=== PATIENT | female | born 1945 | race African-American/Black ===

== ENCOUNTER 2018-04-22 08:59 | Inpatient (IN) ==
[2018-04-22] MEDS ORDERED: SODIUM CHLORIDE 0.9% 500 ML IV STA (09:53)
[2018-04-22 11:06] LABS: Basophils # 0.1 10*3/uL (0.0-0.2); Basophils % 0.6 % (0.0-0.8); Eosinophils % 0.2 % (0.00-10.9); Hematocrit 42.2 VOL% (35.7-47.0); Hemoglobin 13.6 GM/DL (12.0-16.0); Immature Granulocytes % 0.3 %; Immature Granulocytes Absolute 0.04 #; Lymphocytes % 24.4 % (21.3-54.2); Mean Corpuscular HGB Conc 32.2 GM/DL (32-36); Mean Corpuscular Hemoglobin 27 PG (27-34); Mean Corpuscular Volume 84.2 FL (87-102); Mean Platelet Volume 9.8 FL (9.6-12.0); Monocytes # 1.6 10*3/uL (0.11-0.8); Neutrophils # 7.6 10*3/uL (1.4-7.4); Neutrophils % 61.5 % (38.7-73.9); Platelet Count 438 T/CUMM (130-400); Red Blood Count 5.01 MC/CUMM (3.8-5.5); Red Cell Distribution Width 15.4 % (9.3-17.3); White Blood Count 12.4 T/CUMM (4-12)
[2018-04-22 11:15] LABS: Apearance,Urine Slightly Hazy (Clear); Bacteria,Urine Occasional /HPF (Few); Bilirubin,Urine Negative (Negative); Blood, Urine Negative (Negative); Glucose,Urine (UA) Negative (Negative); Ketones,Urine Negative (Negative); Nitrite,Urine Negative (Negative); Protein,Urine Negative; RBC,Urine 1 /HPF (0-4); Squamous Epithelial Cell,Urine Occasional /HPF (0-10); Urine Color Yellow (Yellow); Urine Specific Gravity 1.008 (1.001-1.035); WBC,Urine 53 /HPF (0-6)
[2018-04-22 11:16] LABS: Albumin 2.7 G/DL (3.4-5.0); Bilirubin,Total 1.3 MG/DL (0.2-1.0); Calcium 9.6 MG/DL (8.5-10.1); Osmolality,Calculated 259.7 MOS/KG (273-304); Potassium 4.3 MMOL/L (3.5-5.1); Thyroid Stimulating Hormone 1.36 uIU/ml (0.358-3.74); Total Protein 7.6 G/DL (6.4-8.3)
[2018-04-22] MEDS ORDERED: ACETAMINOPHEN 325 MG TABLET PO PRN (11:41)
[2018-04-22] MEDS ORDERED: PROMETHAZINE 25 MG/1 ML VIAL IM PRN (11:41)
[2018-04-22] MEDS ORDERED: ONDANSETRON 4 MG/2 ML VIAL IV PRN (11:41)
[2018-04-22] MEDS ORDERED: SODIUM CHLORIDE 0.9% 1,000 ML IV SCH (12:00)
[2018-04-22] MEDS ORDERED: ENOXAPARIN 40 MG/0.4 ML SYRINGE SUBCUT SCH (12:00)
[2018-04-22] MEDS: ASPIRIN 325 MG TABLET PO SCH (12:13)
[2018-04-22] MEDS: cefTRIAXone 1,000 MG in SYRINGE 1 EACH IV SCH (12:15)
[2018-04-22] MEDS ORDERED: cefTRIAXone 1,000 MG VIAL ONE (12:15)
[2018-04-22] MEDS: ENOXAPARIN 60 MG/0.6 ML SYRINGE SUBCUT SCH ×2 (12:16→23:00)
[2018-04-22 17:46] LABS: CKMB % 2.8 %
[2018-04-22 17:52] LABS: Troponin I 4.63 NG/ML (0.00-0.045)
[2018-04-22] MEDS: ROSUVASTATIN 20 MG TABLET PO SCH (22:46)
[2018-04-22 22:49] LABS: CKMB % 2.5 %
[2018-04-22 22:55] LABS: Troponin I 5.05 NG/ML (0.00-0.045)
[2018-04-23 04:13] LABS: Basophils # 0.1 10*3/uL (0.0-0.2); Basophils % 0.6 % (0.0-0.8); Eosinophils # 0.1 10*3/uL (0.0-0.87); Eosinophils % 0.6 % (0.00-10.9); Hematocrit 33.1 VOL% (35.7-47.0); Hemoglobin 10.3 GM/DL (12.0-16.0); Immature Granulocytes % 0.4 %; Immature Granulocytes Absolute 0.05 #; Lymphocytes % 32.2 % (21.3-54.2); Mean Corpuscular HGB Conc 31.1 GM/DL (32-36); Mean Corpuscular Hemoglobin 26 PG (27-34); Mean Corpuscular Volume 84.2 FL (87-102); Mean Platelet Volume 10.5 FL (9.6-12.0); Monocytes # 1.7 10*3/uL (0.11-0.8); Monocytes % 13.7 % (1.7-12.7); Neutrophils # 6.5 10*3/uL (1.4-7.4); Neutrophils % 52.5 % (38.7-73.9); Platelet Count 419 T/CUMM (130-400); Red Blood Count 3.93 MC/CUMM (3.8-5.5); Red Cell Distribution Width 15.2 % (9.3-17.3); White Blood Count 12.4 T/CUMM (4-12)
[2018-04-23 04:44] LABS: Bilirubin,Total 0.8 MG/DL (0.2-1.0); Calcium 8.1 MG/DL (8.5-10.1); Osmolality,Calculated 259.7 MOS/KG (273-304); Potassium 3.7 MMOL/L (3.5-5.1); Risk Ratio 3.32; Total Protein 6.3 G/DL (6.4-8.3); VLDL CHOLESTEROL 12.8 MG/DL
[2018-04-23] MEDS ORDERED: MAGNESIUM SULF RIDER 2 GM in PREMIX 1 EACH IV ONE (07:08)
[2018-04-23] MEDS: PANTOPRAZOLE 40 MG TABLET PO SCH (08:24)
[2018-04-23] MEDS: ASPIRIN 325 MG TABLET PO SCH (08:24)
[2018-04-23] MEDS ORDERED: HYOSCYAMINE 0.125 MG TABLET PO PRN (10:21)
[2018-04-23] MEDS: cefTRIAXone 1,000 MG in SYRINGE 1 EACH IV SCH (13:00)
[2018-04-23] MEDS: ENOXAPARIN 60 MG/0.6 ML SYRINGE SUBCUT SCH (13:00)
[2018-04-23] MEDS: RIVAROXABAN 20 MG TABLET PO SCH (17:31)
[2018-04-23] MEDS: ROSUVASTATIN 20 MG TABLET PO SCH (21:09)
[2018-04-24 04:36] LABS: Basophils # 0.1 10*3/uL (0.0-0.2); Basophils % 1.2 % (0.0-0.8); Eosinophils # 0.1 10*3/uL (0.0-0.87); Eosinophils % 1.4 % (0.00-10.9); Hematocrit 32.1 VOL% (35.7-47.0); Hemoglobin 10.3 GM/DL (12.0-16.0); Immature Granulocytes % 0.3 %; Immature Granulocytes Absolute 0.03 #; Lymphocytes % 41.9 % (21.3-54.2); Mean Corpuscular HGB Conc 32.1 GM/DL (32-36); Mean Corpuscular Hemoglobin 27 PG (27-34); Mean Corpuscular Volume 84.9 FL (87-102); Mean Platelet Volume 10.1 FL (9.6-12.0); Monocytes # 1.2 10*3/uL (0.11-0.8); Monocytes % 12.9 % (1.7-12.7); Neutrophils % 42.3 % (38.7-73.9); Platelet Count 446 T/CUMM (130-400); Red Blood Count 3.78 MC/CUMM (3.8-5.5); Red Cell Distribution Width 15.2 % (9.3-17.3); White Blood Count 9.4 T/CUMM (4-12)
[2018-04-24 04:38] LABS: Calcium 8.4 MG/DL (8.5-10.1); Osmolality,Calculated 263.4 MOS/KG (273-304); Potassium 3.9 MMOL/L (3.5-5.1)
[2018-04-24] MEDS: PANTOPRAZOLE 40 MG TABLET PO SCH (08:44)
[2018-04-24] MEDS: ASPIRIN 325 MG TABLET PO SCH (08:44)
[2018-04-24] MEDS: cefTRIAXone 1,000 MG in SYRINGE 1 EACH IV SCH (11:49)
[2018-04-24] MEDS: RIVAROXABAN 20 MG TABLET PO SCH (17:23)
[2018-04-24] MEDS: ROSUVASTATIN 20 MG TABLET PO SCH (21:19)
[2018-04-25 04:30] LABS: Basophils # 0.1 10*3/uL (0.0-0.2); Basophils % 0.9 % (0.0-0.8); Eosinophils # 0.2 10*3/uL (0.0-0.87); Eosinophils % 1.9 % (0.00-10.9); Hematocrit 33.2 VOL% (35.7-47.0); Hemoglobin 10.4 GM/DL (12.0-16.0); Immature Granulocytes % 0.2 %; Immature Granulocytes Absolute 0.02 #; Lymphocytes # 3.7 10*3/uL (1.4-4.0); Lymphocytes % 42.9 % (21.3-54.2); Mean Corpuscular HGB Conc 31.3 GM/DL (32-36); Mean Corpuscular Hemoglobin 26 PG (27-34); Mean Corpuscular Volume 83.8 FL (87-102); Mean Platelet Volume 9.6 FL (9.6-12.0); Monocytes # 0.9 10*3/uL (0.11-0.8); Monocytes % 10.4 % (1.7-12.7); Neutrophils # 3.8 10*3/uL (1.4-7.4); Neutrophils % 43.7 % (38.7-73.9); Platelet Count 476 T/CUMM (130-400); Red Blood Count 3.96 MC/CUMM (3.8-5.5); White Blood Count 8.7 T/CUMM (4-12)
[2018-04-25 04:51] LABS: Calcium 8.7 MG/DL (8.5-10.1); Osmolality,Calculated 267.1 MOS/KG (273-304); Potassium 4.5 MMOL/L (3.5-5.1)
[2018-04-25] MEDS: PANTOPRAZOLE 40 MG TABLET PO SCH (09:09)
[2018-04-25] MEDS: ASPIRIN 325 MG TABLET PO SCH (09:09)
[2018-04-25] MEDS: cefTRIAXone 1,000 MG in SYRINGE 1 EACH IV SCH (11:01)
[2018-04-25] MEDS ORDERED: diphenhydrAMINE CAP 25 MG CAPSULE PO ONE (14:09)
[2018-04-25] MEDS ORDERED: MAGNESIUM SULF RIDER 2 GM in PREMIX 1 EACH IV PRN (14:09)
[2018-04-25] MEDS ORDERED: DIAZEPAM 5 MG TABLET PO ONE (14:09)
[2018-04-25] MEDS ORDERED: POTASSIUM CHLORIDE RIDER 10 MEQ in PREMIX 1 EACH IV PRN (14:09)
[2018-04-25] MEDS ORDERED: LEVOFLOXACIN INJ 500 MG in PREMIX 1 EACH IV SCH (15:00)
[2018-04-25] MEDS: ROSUVASTATIN 20 MG TABLET PO SCH (20:51)
[2018-04-26 04:00] LABS: Basophils # 0.1 10*3/uL (0.0-0.2); Basophils % 0.7 % (0.0-0.8); Eosinophils # 0.2 10*3/uL (0.0-0.87); Eosinophils % 1.6 % (0.00-10.9); Hematocrit 32.8 VOL% (35.7-47.0); Hemoglobin 10.5 GM/DL (12.0-16.0); Immature Granulocytes % 0.4 %; Immature Granulocytes Absolute 0.04 #; Lymphocytes # 3.7 10*3/uL (1.4-4.0); Lymphocytes % 39.1 % (21.3-54.2); Mean Corpuscular Hemoglobin 27 PG (27-34); Mean Corpuscular Volume 84.3 FL (87-102); Mean Platelet Volume 9.8 FL (9.6-12.0); Monocytes % 10.1 % (1.7-12.7); Neutrophils # 4.6 10*3/uL (1.4-7.4); Neutrophils % 48.1 % (38.7-73.9); Platelet Count 496 T/CUMM (130-400); Red Blood Count 3.89 MC/CUMM (3.8-5.5); Red Cell Distribution Width 14.9 % (9.3-17.3); White Blood Count 9.5 T/CUMM (4-12)
[2018-04-26 04:07] LABS: PT Patient Result 10.7 SECS
[2018-04-26 04:20] LABS: Calcium 8.9 MG/DL (8.5-10.1); Osmolality,Calculated 262.5 MOS/KG (273-304); Potassium 4.3 MMOL/L (3.5-5.1)
[2018-04-26] MEDS ORDERED: DIAZEPAM 5 MG TABLET PO ONE (08:00)
[2018-04-26] MEDS ORDERED: diphenhydrAMINE CAP 25 MG CAPSULE PO ONE (08:00)
[2018-04-26 08:08] VITALS: BP 108/57
[2018-04-26] MEDS: ASPIRIN 325 MG TABLET PO SCH (10:13)
[2018-04-26] MEDS: PANTOPRAZOLE 40 MG TABLET PO SCH (10:13)
== END 2018-04-26 13:40 | DRG 64 ==
LOC: N.ED 08:59 → N.EDINP 11:52 → SUATTDRO 11:52 → N.TELES 12:04
PROVIDERS: ADMIT Internal Medicine Geriatric Medicine; ATTEND Internal Medicine

== ENCOUNTER 2018-05-01 05:49 | Inpatient (IN) ==
[2018-05-01] MEDS ORDERED: SODIUM CHLORIDE 0.9% 1,000 ML IV STA ×2 (06:14→08:13)
[2018-05-01 06:55] LABS: Basophils # 0.1 10*3/uL (0.0-0.2); Basophils % 0.4 % (0.0-0.8); Eosinophils % 0.1 % (0.00-10.9); Hematocrit 20.2 VOL% (35.7-47.0); Immature Granulocytes % 0.8 %; Immature Granulocytes Absolute 0.13 #; Lymphocytes # 2.5 10*3/uL (1.4-4.0); Lymphocytes % 15.2 % (21.3-54.2); Mean Corpuscular HGB Conc 31.7 GM/DL (32-36); Mean Corpuscular Hemoglobin 28 PG (27-34); Mean Corpuscular Volume 86.7 FL (87-102); Mean Platelet Volume 9.4 FL (9.6-12.0); Monocytes # 0.4 10*3/uL (0.11-0.8); Monocytes % 2.2 % (1.7-12.7); Neutrophils # 13.3 10*3/uL (1.4-7.4); Neutrophils % 81.3 % (38.7-73.9); Platelet Count 504 T/CUMM (130-400); Red Blood Count 2.33 MC/CUMM (3.8-5.5); Red Cell Distribution Width 14.9 % (9.3-17.3); White Blood Count 16.3 T/CUMM (4-12)
[2018-05-01 07:02] LABS: INR 1.4; PT Patient Result 14.9 SECS; Partial Thromboplastin Time 30.8 SECS (0-40)
[2018-05-01 07:11] LABS: Hemoglobin 6.4 GM/DL (12.0-16.0)
[2018-05-01] MEDS ORDERED: SODIUM CHLORIDE 0.9% 1,000 ML IV PRN ×5 (07:16→11:55)
[2018-05-01] MEDS ORDERED: HYDROmorphone 2 MG/1 ML VIAL IV STA (07:20)
[2018-05-01] MEDS ORDERED: ONDANSETRON 4 MG/2 ML VIAL IV STA (07:20)
[2018-05-01 07:25] LABS: Alanine Aminotransferase 33 U/L (13-56); Albumin 2.6 G/DL (3.4-5.0); Alkaline Phosphatase 81 U/L (45-117); Aspartate Amino Transferase 29 U/L (0-37); Bilirubin,Total < 0.39 MG/DL (0.2-1.0); Blood Urea Nitrogen 33 MG/DL (7-18); Calcium 9.3 MG/DL (8.5-10.1); Glucose 163 MG/DL (74-106); Osmolality,Calculated 268.9 MOS/KG (273-304); Potassium 5.4 MMOL/L (3.5-5.1); Sodium 129 MMOL/L (136-145); Total Protein 7.2 G/DL (6.4-8.3)
[2018-05-01] MEDS ORDERED: ALBUTEROL 2.5 MG/3 ML NEB RESP TX PRN (07:42)
[2018-05-01] MEDS ORDERED: ONDANSETRON 4 MG/2 ML VIAL IV PRN (07:42)
[2018-05-01] MEDS ORDERED: PROMETHAZINE 25 MG/1 ML VIAL IM PRN (07:42)
[2018-05-01] MEDS ORDERED: ACETAMINOPHEN 325 MG TABLET PO PRN (07:42)
[2018-05-01] MEDS ORDERED: SODIUM CHLORIDE 0.9% 1,000 ML IV SCH (08:00)
[2018-05-01] MEDS ORDERED: ROCURONIUM 100 MG/10 ML VIAL IV ONE (08:13)
[2018-05-01] MEDS ORDERED: ETOMIDATE 20 MG/10 ML VIAL IV ONE (08:13)
[2018-05-01] MEDS ORDERED: CALCIUM CHLORIDE 1,000 MG/10 ML SYRINGE IV STA (08:36)
[2018-05-01] MEDS ORDERED: EPINEPHrine 1 MG/10 ML SYRINGE IV ONE (08:44)
[2018-05-01 08:56] LABS: ABG Base Excess -22.9 MMOL/L (-2.5-2.5); ABG HCO3 6.9 MMOL/L (20-26); ABG Oxygen Saturation 20.6 % (95-100); ABG PCO2 56.3 MM HG (35-48); ABG TCO2 10.2 MMOL/L (23-27)
[2018-05-01 08:58] LABS: ABG PH 6.829 (7.35-7.45); ABG PO2 26.1 MM HG (80-95)
[2018-05-01] MEDS ORDERED: SODIUM BICARBONATE 50 MEQ/50 ML VIAL IV STA ×2 (09:07→09:40)
[2018-05-01] MEDS ORDERED: SODIUM BICARBONATE 10 MEQ/10 ML SYRINGE IV ONE (09:09)
[2018-05-01] MEDS ORDERED: OCTREOTIDE 100 MCG/ML SYRINGE IV ONE (09:12)
[2018-05-01 09:37] LABS: ABG Base Excess -24.3 MMOL/L (-2.5-2.5); ABG HCO3 5.7 MMOL/L (20-26); ABG Oxygen Saturation 98.6 % (95-100); ABG PCO2 25.1 MM HG (35-48); ABG PO2 288.5 MM HG (80-95); ABG TCO2 6.5 MMOL/L (23-27)
[2018-05-01 09:41] LABS: ABG PH 6.977 (7.35-7.45)
[2018-05-01] MEDS ORDERED: SODIUM BICARBONATE 50 MEQ/50 ML SYRINGE IV ONE (09:42)
[2018-05-01] MEDS ORDERED: PROTHROMBIN COMPLEX IV ONE ×3 (10:00→11:55)
[2018-05-01] MEDS ORDERED: OCTREOTIDE 500 MCG in SODIUM CHLORIDE 0.9% 100 ML IV SCH (10:00)
[2018-05-01 10:56] LABS: Basophils # 0.1 10*3/uL (0.0-0.2); Basophils % 0.5 % (0.0-0.8); Eosinophils % 0.1 % (0.00-10.9); Hematocrit 42.2 VOL% (35.7-47.0); Hemoglobin 12.8 GM/DL (12.0-16.0); Immature Granulocytes % 2.9 %; Immature Granulocytes Absolute 0.75 #; Lymphocytes % 7.6 % (21.3-54.2); Mean Corpuscular HGB Conc 30.3 GM/DL (32-36); Mean Corpuscular Hemoglobin 28 PG (27-34); Mean Corpuscular Volume 92.3 FL (87-102); Mean Platelet Volume 9.5 FL (9.6-12.0); Monocytes # 0.5 10*3/uL (0.11-0.8); Monocytes % 1.9 % (1.7-12.7); Neutrophils # 22.4 10*3/uL (1.4-7.4); Platelet Count 265 T/CUMM (130-400); Red Blood Count 4.57 MC/CUMM (3.8-5.5); Red Cell Distribution Width 15.8 % (9.3-17.3); White Blood Count 25.7 T/CUMM (4-12)
[2018-05-01 11:19] LABS: Anisocytosis Slight; Band Neutrophils 16 % (0-10); Lymphocytes 7 % (20-55); Macrocytosis 1+; Platelet Estimate Normal; Poikilocytosis Slight; Segmented Neutrophils 77 % (50-85); Smudge Cells Few; Total Cells Counted 100
[2018-05-01 11:20] LABS: Calcium 9.1 MG/DL (8.5-10.1); Osmolality,Calculated 295.4 MOS/KG (273-304); Potassium 5.1 MMOL/L (3.5-5.1); Spherocytes Few
[2018-05-01] MEDS ORDERED: FUROSEMIDE 40 MG/4 ML VIAL IV STA (11:22)
[2018-05-01] MEDS ORDERED: VANCOMYCIN INJ 1,000 MG in SODIUM CHLORIDE 0.9% 250 ML IV ONE (11:30)
[2018-05-01 11:53] LABS: ABG HCO3 16.4 MMOL/L (20-26); ABG Oxygen Saturation 87.4 % (95-100); ABG PCO2 38.8 MM HG (35-48); ABG PH 7.247 (7.35-7.45); ABG PO2 59.3 MM HG (80-95); ABG TCO2 15.4 MMOL/L (23-27); Allen Test Positive; Pt O2 Delivery Device Ventilator
[2018-05-01] MEDS: SODIUM BICARB INJ 100 MEQ in DEXTROSE 5% 1,000 ML IV SCH ×2 (12:05→22:24)
[2018-05-01] MEDS ORDERED: METOPROLOL TARTRATE 5 MG/5 ML VIAL IV ONE ×2 (12:27→12:33)
[2018-05-01] MEDS ORDERED: FUROSEMIDE 100 MG/10 ML VIAL ONE (12:39)
[2018-05-01] MEDS ORDERED: FUROSEMIDE 40 MG/4 ML VIAL IV ONE (13:02)
[2018-05-01 13:10] LABS: Hematocrit 40.2 VOL% (35.7-47.0); Hemoglobin 12.4 GM/DL (12.0-16.0)
[2018-05-01 13:13] LABS: Apearance,Urine CLOUDY (Clear); Bilirubin,Urine Negative (Negative); Blood, Urine Negative (Negative); Glucose,Urine (UA) 50 mg/dL (Negative); Hyaline Casts,Urine 23 /LPF (0-3); Ketones,Urine Negative (Negative); Mucus,Urine Occasional /LPF (Occasional); Nitrite,Urine Negative (Negative); Protein,Urine 100 MG/DL; RBC,Urine 11 /HPF (0-4); Squamous Epithelial Cell,Urine Few /HPF (0-10); Urine Color Yellow (Yellow); Urine Specific Gravity 1.019 (1.001-1.035); Urine Urobilinogen < 2.0 EU/DL (0.2-1.0); WBC,Urine 50 /HPF (0-6)
[2018-05-01] MEDS: PANTOPRAZOLE 40 MG VIAL IV SCH ×2 (14:06→21:20)
[2018-05-01] MEDS: PIPERACILLIN/TAZOBACTAM 3,375 MG in SODIUM CHLORIDE 0.9% 100 ML IV SCH ×2 (14:30→22:17)
[2018-05-01] MEDS: PROPOFOL 1,000 MG/100 ML BOTTLE IV SCH (15:45)
[2018-05-01] MEDS: HYDROCORTISONE 100 MG VIAL IV SCH (17:05)
[2018-05-01 19:11] LABS: Hematocrit 39.7 VOL% (35.7-47.0)
[2018-05-02] MEDS: HYDROCORTISONE 100 MG VIAL IV SCH ×3 (01:34→16:39)
[2018-05-02] MEDS: VANCOMYCIN INJ 750 MG in SODIUM CHLORIDE 0.9% 250 ML IV SCH ×2 (01:34→13:23)
[2018-05-02 02:31] LABS: Hematocrit 34.8 VOL% (35.7-47.0); Hemoglobin 11.5 GM/DL (12.0-16.0)
[2018-05-02 03:44] LABS: ABG Base Excess 1.4 MMOL/L (-2.5-2.5); ABG HCO3 25.7 MMOL/L (20-26); ABG PCO2 32.8 MM HG (35-48); ABG PH 7.479 (7.35-7.45); ABG TCO2 21.5 MMOL/L (23-27); Allen Test Positive; Pt O2 Delivery Device Ventilator
[2018-05-02 05:21] LABS: Basophils # 0.1 10*3/uL (0.0-0.2); Basophils % 0.3 % (0.0-0.8); Hematocrit 36.1 VOL% (35.7-47.0); Hemoglobin 11.9 GM/DL (12.0-16.0); Immature Granulocytes % 0.4 %; Immature Granulocytes Absolute 0.07 #; Lymphocytes # 1.4 10*3/uL (1.4-4.0); Lymphocytes % 7.9 % (21.3-54.2); Mean Corpuscular Hemoglobin 28 PG (27-34); Mean Corpuscular Volume 85.3 FL (87-102); Mean Platelet Volume 10.1 FL (9.6-12.0); Monocytes # 0.7 10*3/uL (0.11-0.8); Monocytes % 3.8 % (1.7-12.7); Neutrophils # 15.6 10*3/uL (1.4-7.4); Neutrophils % 87.6 % (38.7-73.9); Platelet Count 255 T/CUMM (130-400); Red Blood Count 4.23 MC/CUMM (3.8-5.5); Red Cell Distribution Width 15.9 % (9.3-17.3); White Blood Count 17.8 T/CUMM (4-12)
[2018-05-02 05:35] LABS: Albumin 1.9 G/DL (3.4-5.0); Bilirubin,Total 0.7 MG/DL (0.2-1.0); Calcium 8.1 MG/DL (8.5-10.1); Osmolality,Calculated 285.7 MOS/KG (273-304); Potassium 3.7 MMOL/L (3.5-5.1); Total Protein 5.6 G/DL (6.4-8.3)
[2018-05-02 05:49] LABS: Band Neutrophils 1 % (0-10); Hypochromasia Slight; Lymphocytes 6 % (20-55); Platelet Estimate Normal; Polychromasia Few; Segmented Neutrophils 89 % (50-85); Total Cells Counted 100
[2018-05-02] MEDS: POTASSIUM CHLORIDE RIDER 10 MEQ in PREMIX 1 EACH IV PRN ×2 (05:56→08:38)
[2018-05-02] MEDS: PIPERACILLIN/TAZOBACTAM 3,375 MG in SODIUM CHLORIDE 0.9% 100 ML IV SCH ×2 (06:01→14:47)
[2018-05-02 07:13] LABS: Hematocrit 37.2 VOL% (35.7-47.0); Hemoglobin 11.9 GM/DL (12.0-16.0)
[2018-05-02] MEDS: PANTOPRAZOLE 40 MG VIAL IV SCH ×2 (08:37→22:46)
[2018-05-02] MEDS: SODIUM BICARB INJ 100 MEQ in DEXTROSE 5% 1,000 ML IV SCH ×2 (10:20→21:20)
[2018-05-02] MEDS: PROPOFOL 1,000 MG/100 ML BOTTLE IV SCH (10:21)
[2018-05-02 10:22] LABS: Troponin I 26.2 NG/ML (0.00-0.045)
[2018-05-02 12:20] LABS: Hematocrit 34.8 VOL% (35.7-47.0); Hemoglobin 11.6 GM/DL (12.0-16.0)
[2018-05-02 17:41] LABS: Troponin I 28.8 NG/ML (0.00-0.045)
[2018-05-02] MEDS ORDERED: LORazepam 2 MG/1 ML VIAL IV PRN (18:09)
[2018-05-02] MEDS ORDERED: cloNIDine 0.1 MG TABLET PO PRN (18:10)
[2018-05-02 18:57] LABS: Hematocrit 31.1 VOL% (35.7-47.0); Hemoglobin 10.4 GM/DL (12.0-16.0)
[2018-05-02] MEDS ORDERED: CLORAZEPATE 7.5 MG TABLET PO SCH (21:00)
[2018-05-02 21:23] LABS: Troponin I 29.2 NG/ML (0.00-0.045)
[2018-05-03] MEDS: VANCOMYCIN INJ 750 MG in SODIUM CHLORIDE 0.9% 250 ML IV SCH ×2 (01:00→13:26)
[2018-05-03 01:42] LABS: Calcium 7.7 MG/DL (8.5-10.1); Osmolality,Calculated 279.7 MOS/KG (273-304)
[2018-05-03 01:45] LABS: Albumin 1.6 G/DL (3.4-5.0); Bilirubin,Total 0.7 MG/DL (0.2-1.0); Calcium 7.8 MG/DL (8.5-10.1); Osmolality,Calculated 280.7 MOS/KG (273-304); Total Protein 5.3 G/DL (6.4-8.3)
[2018-05-03 02:03] LABS: Hematocrit 29.3 VOL% (35.7-47.0); Hemoglobin 9.7 GM/DL (12.0-16.0)
[2018-05-03 02:17] LABS: Troponin I 25.8 NG/ML (0.00-0.045)
[2018-05-03] MEDS: HYDROCORTISONE 100 MG VIAL IV SCH ×3 (03:24→17:07)
[2018-05-03 04:39] LABS: ABG HCO3 30.8 MMOL/L (20-26); ABG Oxygen Saturation 99.7 % (95-100); ABG PCO2 26.4 MM HG (35-48); ABG TCO2 25.2 MMOL/L (23-27); Allen Test Positive; Pt O2 Delivery Device Ventilator
[2018-05-03] MEDS: PROPOFOL 1,000 MG/100 ML BOTTLE IV SCH ×3 (05:59→16:00)
[2018-05-03] MEDS: SODIUM BICARB INJ 100 MEQ in DEXTROSE 5% 1,000 ML IV SCH ×2 (06:01→16:11)
[2018-05-03 06:02] LABS: Basophils % 0.1 % (0.0-0.8); Hematocrit 28.7 VOL% (35.7-47.0); Hemoglobin 9.4 GM/DL (12.0-16.0); Lymphocytes # 2.2 10*3/uL (1.4-4.0); Lymphocytes % 10.8 % (21.3-54.2); Mean Corpuscular HGB Conc 32.8 GM/DL (32-36); Mean Corpuscular Hemoglobin 28 PG (27-34); Mean Corpuscular Volume 84.7 FL (87-102); Mean Platelet Volume 10.7 FL (9.6-12.0); Monocytes # 1.1 10*3/uL (0.11-0.8); Monocytes % 5.6 % (1.7-12.7); Neutrophils # 16.9 10*3/uL (1.4-7.4); Neutrophils % 82.5 % (38.7-73.9); Platelet Count 247 T/CUMM (130-400); Red Blood Count 3.39 MC/CUMM (3.8-5.5); Red Cell Distribution Width 16.1 % (9.3-17.3); White Blood Count 20.5 T/CUMM (4-12)
[2018-05-03] MEDS: PIPERACILLIN/TAZOBACTAM 3,375 MG in SODIUM CHLORIDE 0.9% 100 ML IV SCH ×4 (06:05→23:39)
[2018-05-03] MEDS ORDERED: MAGNESIUM SULF RIDER 4 GM in PREMIX 1 EACH IV PRN (07:06)
[2018-05-03 07:19] LABS: Band Neutrophils 4 % (0-10); Eosinophils 1 % (0-10); Hypochromasia 1+; Lymphocytes 11 % (20-55); Ovalocytes Slight; Platelet Estimate Adequate; Segmented Neutrophils 81 % (50-85); Total Cells Counted 100
[2018-05-03 07:36] LABS: Hematocrit 30.7 VOL% (35.7-47.0)
[2018-05-03] MEDS: PANTOPRAZOLE 40 MG VIAL IV SCH ×2 (08:30→20:07)
[2018-05-03] MEDS: POTASSIUM CHLORIDE RIDER 10 MEQ in PREMIX 1 EACH IV PRN ×10 (08:31→21:22)
[2018-05-03] MEDS: MAGNESIUM SULF RIDER 2 GM in PREMIX 1 EACH IV PRN ×2 (08:31→09:54)
[2018-05-03] MEDS ORDERED: MAGNESIUM SULF RIDER 4 GM in PREMIX 1 EACH IV ONE (09:02)
[2018-05-03] MEDS ORDERED: POTASSIUM CHLORIDE 20 MEQ/15 ML UDCUP PER TUBE SCH (09:30)
[2018-05-03] MEDS: NOREPINEPHRINE 8 MG in SODIUM CHLORIDE 0.9% 242 ML IV PRN ×2 (10:02→23:10)
[2018-05-03] MEDS: INSULIN REGULAR 100 UNIT/ML SUBCUT SCH ×2 (13:26→18:05)
[2018-05-04] MEDS: INSULIN REGULAR 100 UNIT/ML SUBCUT SCH ×4 (00:19→18:29)
[2018-05-04] MEDS: HYDROCORTISONE 100 MG VIAL IV SCH ×3 (01:27→16:58)
[2018-05-04] MEDS: VANCOMYCIN INJ 750 MG in SODIUM CHLORIDE 0.9% 250 ML IV SCH ×2 (01:29→12:55)
[2018-05-04] MEDS: SODIUM BICARB INJ 100 MEQ in DEXTROSE 5% 1,000 ML IV SCH (03:30)
[2018-05-04 04:13] LABS: ABG Base Excess 9.5 MMOL/L (-2.5-2.5); ABG HCO3 33.2 MMOL/L (20-26); ABG PCO2 37.3 MM HG (35-48); ABG PH 7.549 (7.35-7.45); ABG PO2 97.4 MM HG (80-95); ABG TCO2 29.3 MMOL/L (23-27); Allen Test Positive; Pt O2 Delivery Device Ventilator
[2018-05-04 04:34] LABS: Basophils # 0.1 10*3/uL (0.0-0.2); Basophils % 0.2 % (0.0-0.8); Hematocrit 31.2 VOL% (35.7-47.0); Hemoglobin 10.1 GM/DL (12.0-16.0); Immature Granulocytes % 2.8 %; Immature Granulocytes Absolute 0.71 #; Lymphocytes # 1.5 10*3/uL (1.4-4.0); Mean Corpuscular HGB Conc 32.4 GM/DL (32-36); Mean Corpuscular Hemoglobin 28 PG (27-34); Mean Corpuscular Volume 86.2 FL (87-102); Mean Platelet Volume 10.8 FL (9.6-12.0); Monocytes % 3.9 % (1.7-12.7); NRBC # 0.09 10*3/uL; Neutrophils # 22.3 10*3/uL (1.4-7.4); Neutrophils % 87.1 % (38.7-73.9); Platelet Count 312 T/CUMM (130-400); Red Blood Count 3.62 MC/CUMM (3.8-5.5); Red Cell Distribution Width 15.9 % (9.3-17.3); White Blood Count 25.6 T/CUMM (4-12)
[2018-05-04 05:01] LABS: Albumin 1.7 G/DL (3.4-5.0); Bilirubin,Total 0.8 MG/DL (0.2-1.0); Calcium 7.7 MG/DL (8.5-10.1); Total Protein 5.8 G/DL (6.4-8.3)
[2018-05-04] MEDS: PROPOFOL 1,000 MG/100 ML BOTTLE IV SCH ×2 (05:06→13:55)
[2018-05-04 05:12] LABS: Band Neutrophils 1 % (0-10); Hypochromasia Slight; Lymphocytes 6 % (20-55); Metamyelocytes 1 %; Platelet Estimate Normal; Polychromasia Few; Segmented Neutrophils 88 % (50-85); Total Cells Counted 100
[2018-05-04] MEDS: POTASSIUM CHLORIDE RIDER 10 MEQ in PREMIX 1 EACH IV PRN ×9 (05:26→22:05)
[2018-05-04] MEDS: PIPERACILLIN/TAZOBACTAM 3,375 MG in SODIUM CHLORIDE 0.9% 100 ML IV SCH ×3 (06:09→23:41)
[2018-05-04] MEDS ORDERED: FUROSEMIDE 40 MG/4 ML VIAL IV ONE (07:49)
[2018-05-04] MEDS: PANTOPRAZOLE 40 MG VIAL IV SCH ×2 (09:16→20:13)
[2018-05-04] MEDS: NOREPINEPHRINE 8 MG in SODIUM CHLORIDE 0.9% 242 ML IV PRN (12:55)
[2018-05-05] MEDS: INSULIN REGULAR 100 UNIT/ML SUBCUT SCH ×4 (00:04→18:13)
[2018-05-05] MEDS: HYDROCORTISONE 100 MG VIAL IV SCH ×2 (01:04→09:41)
[2018-05-05] MEDS: VANCOMYCIN INJ 750 MG in SODIUM CHLORIDE 0.9% 250 ML IV SCH ×2 (01:05→12:55)
[2018-05-05] MEDS: PROPOFOL 1,000 MG/100 ML BOTTLE IV SCH ×3 (02:09→22:21)
[2018-05-05] MEDS: NOREPINEPHRINE 8 MG in SODIUM CHLORIDE 0.9% 242 ML IV PRN ×2 (02:34→16:23)
[2018-05-05 03:13] LABS: Basophils # 0.1 10*3/uL (0.0-0.2); Basophils % 0.2 % (0.0-0.8); Eosinophils % 0.1 % (0.00-10.9); Hematocrit 31.6 VOL% (35.7-47.0); Immature Granulocytes % 2.3 %; Immature Granulocytes Absolute 0.58 #; Lymphocytes # 1.8 10*3/uL (1.4-4.0); Lymphocytes % 6.8 % (21.3-54.2); Mean Corpuscular HGB Conc 31.6 GM/DL (32-36); Mean Corpuscular Hemoglobin 28 PG (27-34); Mean Corpuscular Volume 87.5 FL (87-102); Mean Platelet Volume 10.6 FL (9.6-12.0); Monocytes # 1.8 10*3/uL (0.11-0.8); NRBC # 0.21 10*3/uL; Neutrophils # 21.5 10*3/uL (1.4-7.4); Neutrophils % 83.6 % (38.7-73.9); Platelet Count 384 T/CUMM (130-400); Red Blood Count 3.61 MC/CUMM (3.8-5.5); Red Cell Distribution Width 15.8 % (9.3-17.3); White Blood Count 25.7 T/CUMM (4-12)
[2018-05-05 03:36] LABS: Albumin 1.7 G/DL (3.4-5.0); Bilirubin,Total 1.3 MG/DL (0.2-1.0); Calcium 7.7 MG/DL (8.5-10.1); Lymphocytes 11 % (20-55); Nucleated Red Blood Cells 1 (0-5); Osmolality,Calculated 280.5 MOS/KG (273-304); Potassium 3.7 MMOL/L (3.5-5.1); Segmented Neutrophils 84 % (50-85); Total Cells Counted 100; Total Protein 5.7 G/DL (6.4-8.3)
[2018-05-05 03:38] LABS: Platelet Estimate Normal; Polychromasia Few
[2018-05-05] MEDS: LORazepam 2 MG/1 ML VIAL IV PRN (04:15)
[2018-05-05] MEDS: PIPERACILLIN/TAZOBACTAM 3,375 MG in SODIUM CHLORIDE 0.9% 100 ML IV SCH ×3 (06:56→23:08)
[2018-05-05] MEDS: PANTOPRAZOLE 40 MG VIAL IV SCH ×2 (09:37→21:47)
[2018-05-05] MEDS: POTASSIUM CHLORIDE RIDER 10 MEQ in PREMIX 1 EACH IV PRN ×2 (11:41→12:54)
[2018-05-05] MEDS: methylPREDNISolone SOD SUC 125 MG/2 ML VIAL IV SCH (16:10)
[2018-05-05] MEDS ORDERED: SODIUM CHLORIDE 0.9% 500 ML IV ONE ×2 (21:40→22:53)
[2018-05-05] MEDS: METOPROLOL TARTRATE 25 MG TABLET PO SCH (21:47)
[2018-05-06] MEDS: INSULIN REGULAR 100 UNIT/ML SUBCUT SCH ×4 (00:14→18:24)
[2018-05-06] MEDS: VANCOMYCIN INJ 750 MG in SODIUM CHLORIDE 0.9% 250 ML IV SCH ×2 (01:03→22:14)
[2018-05-06 02:56] LABS: Pt O2 Delivery Device Ventilator
[2018-05-06 02:57] LABS: ABG Base Excess 5.9 MMOL/L (-2.5-2.5); ABG HCO3 29.8 MMOL/L (20-26); ABG Oxygen Saturation 96.7 % (95-100); ABG PCO2 36.8 MM HG (35-48); ABG PH 7.508 (7.35-7.45); ABG PO2 84.8 MM HG (80-95); ABG TCO2 26.7 MMOL/L (23-27)
[2018-05-06 03:56] LABS: Basophils % 0.1 % (0.0-0.8); Hematocrit 28.3 VOL% (35.7-47.0); Hemoglobin 8.9 GM/DL (12.0-16.0); Immature Granulocytes % 1.6 %; Immature Granulocytes Absolute 0.32 #; Lymphocytes # 1.5 10*3/uL (1.4-4.0); Lymphocytes % 7.2 % (21.3-54.2); Mean Corpuscular HGB Conc 31.4 GM/DL (32-36); Mean Corpuscular Hemoglobin 28 PG (27-34); Mean Corpuscular Volume 88.2 FL (87-102); Mean Platelet Volume 10.4 FL (9.6-12.0); Monocytes # 1.5 10*3/uL (0.11-0.8); Monocytes % 7.3 % (1.7-12.7); NRBC # 0.12 10*3/uL; Neutrophils % 83.8 % (38.7-73.9); Platelet Count 388 T/CUMM (130-400); Red Blood Count 3.21 MC/CUMM (3.8-5.5); Red Cell Distribution Width 15.9 % (9.3-17.3); White Blood Count 20.3 T/CUMM (4-12)
[2018-05-06] MEDS: methylPREDNISolone SOD SUC 125 MG/2 ML VIAL IV SCH ×3 (04:16→16:36)
[2018-05-06 04:33] LABS: Albumin 1.6 G/DL (3.4-5.0); Bilirubin,Total 0.7 MG/DL (0.2-1.0); Calcium 7.8 MG/DL (8.5-10.1); Osmolality,Calculated 284.4 MOS/KG (273-304); Potassium 3.4 MMOL/L (3.5-5.1); Total Protein 5.2 G/DL (6.4-8.3)
[2018-05-06 05:09] LABS: Band Neutrophils 1 % (0-10); Lymphocytes 6 % (20-55); Platelet Estimate Normal; Segmented Neutrophils 88 % (50-85); Total Cells Counted 100
[2018-05-06] MEDS: POTASSIUM CHLORIDE RIDER 10 MEQ in PREMIX 1 EACH IV PRN ×3 (05:30→08:14)
[2018-05-06] MEDS ORDERED: SODIUM CHLORIDE 0.9% 500 ML IV ONE (05:47)
[2018-05-06] MEDS: PIPERACILLIN/TAZOBACTAM 3,375 MG in SODIUM CHLORIDE 0.9% 100 ML IV SCH ×3 (06:31→23:32)
[2018-05-06] MEDS: METOPROLOL TARTRATE 25 MG TABLET PO SCH ×2 (09:35→22:14)
[2018-05-06] MEDS: ROSUVASTATIN 20 MG TABLET PO SCH (09:35)
[2018-05-06] MEDS: PANTOPRAZOLE 40 MG VIAL IV SCH ×2 (09:36→22:14)
[2018-05-06] MEDS: PROPOFOL 1,000 MG/100 ML BOTTLE IV SCH (14:10)
[2018-05-06] MEDS: LORazepam 2 MG/1 ML VIAL IV PRN (22:56)
[2018-05-07] MEDS: INSULIN REGULAR 100 UNIT/ML SUBCUT SCH ×5 (00:05→23:36)
[2018-05-07 03:54] LABS: Basophils % 0.2 % (0.0-0.8); Hematocrit 31.2 VOL% (35.7-47.0); Hemoglobin 9.5 GM/DL (12.0-16.0); Immature Granulocytes % 2.2 %; Immature Granulocytes Absolute 0.53 #; Lymphocytes # 1.7 10*3/uL (1.4-4.0); Lymphocytes % 7.3 % (21.3-54.2); Mean Corpuscular HGB Conc 30.4 GM/DL (32-36); Mean Corpuscular Hemoglobin 27 PG (27-34); Mean Corpuscular Volume 89.4 FL (87-102); Monocytes # 1.4 10*3/uL (0.11-0.8); Monocytes % 6.1 % (1.7-12.7); NRBC # 0.17 10*3/uL; Neutrophils # 19.9 10*3/uL (1.4-7.4); Neutrophils % 84.2 % (38.7-73.9); Platelet Count 293 T/CUMM (130-400); Red Blood Count 3.49 MC/CUMM (3.8-5.5); Red Cell Distribution Width 16.1 % (9.3-17.3); White Blood Count 23.7 T/CUMM (4-12)
[2018-05-07 04:17] LABS: Albumin 1.7 G/DL (3.4-5.0); Bilirubin,Total 0.6 MG/DL (0.2-1.0); Calcium 8.3 MG/DL (8.5-10.1); Osmolality,Calculated 286.5 MOS/KG (273-304); Potassium 3.9 MMOL/L (3.5-5.1); Total Protein 5.5 G/DL (6.4-8.3)
[2018-05-07] MEDS: POTASSIUM CHLORIDE RIDER 10 MEQ in PREMIX 1 EACH IV PRN ×2 (05:00→06:17)
[2018-05-07 05:07] LABS: Lymphocytes 15 % (20-55); Nucleated Red Blood Cells 2 (0-5); Segmented Neutrophils 82 % (50-85); Total Cells Counted 100
[2018-05-07 05:08] LABS: Hypochromasia 1+
[2018-05-07] MEDS: methylPREDNISolone SOD SUC 125 MG/2 ML VIAL IV SCH (05:08)
[2018-05-07] MEDS: PROPOFOL 1,000 MG/100 ML BOTTLE IV SCH ×3 (05:18→18:23)
[2018-05-07] MEDS: PIPERACILLIN/TAZOBACTAM 3,375 MG in SODIUM CHLORIDE 0.9% 100 ML IV SCH ×3 (06:16→22:50)
[2018-05-07] MEDS ORDERED: FUROSEMIDE 40 MG/4 ML VIAL IV ONE (08:33)
[2018-05-07] MEDS: METOPROLOL TARTRATE 25 MG TABLET PO SCH ×2 (09:13→20:17)
[2018-05-07] MEDS: ASPIRIN CHEW 81 MG TABLET PO SCH (09:13)
[2018-05-07] MEDS: ROSUVASTATIN 20 MG TABLET PO SCH (09:14)
[2018-05-07] MEDS: PANTOPRAZOLE 40 MG VIAL IV SCH ×2 (09:14→20:17)
[2018-05-07] MEDS ORDERED: SODIUM CHLORIDE 0.9% 1,000 ML IV SCH (10:30)
[2018-05-07] MEDS: methylPREDNISolone SOD SUC 40 MG/1 ML VIAL IV SCH ×2 (13:17→20:17)
[2018-05-07] MEDS: VANCOMYCIN INJ 750 MG in SODIUM CHLORIDE 0.9% 250 ML IV SCH (15:27)
[2018-05-08 04:50] LABS: ABG Base Excess 0.3 MMOL/L (-2.5-2.5); ABG HCO3 24.7 MMOL/L (20-26); ABG Oxygen Saturation 98.3 % (95-100); ABG PCO2 32.7 MM HG (35-48); ABG PH 7.467 (7.35-7.45); ABG TCO2 21.6 MMOL/L (23-27); Allen Test Positive; Pt O2 Delivery Device Ventilator
[2018-05-08 05:07] LABS: Basophils % 0.1 % (0.0-0.8); Hematocrit 31.9 VOL% (35.7-47.0); Hemoglobin 9.6 GM/DL (12.0-16.0); Immature Granulocytes % 3.7 %; Immature Granulocytes Absolute 0.85 #; Lymphocytes # 1.4 10*3/uL (1.4-4.0); Lymphocytes % 6.1 % (21.3-54.2); Mean Corpuscular HGB Conc 30.1 GM/DL (32-36); Mean Corpuscular Hemoglobin 27 PG (27-34); Mean Corpuscular Volume 89.6 FL (87-102); Mean Platelet Volume 10.3 FL (9.6-12.0); Monocytes # 2.1 10*3/uL (0.11-0.8); NRBC # 0.43 10*3/uL; Neutrophils # 18.6 10*3/uL (1.4-7.4); Neutrophils % 81.1 % (38.7-73.9); Platelet Count 542 T/CUMM (130-400); Red Blood Count 3.56 MC/CUMM (3.8-5.5); White Blood Count 22.9 T/CUMM (4-12)
[2018-05-08] MEDS: methylPREDNISolone SOD SUC 40 MG/1 ML VIAL IV SCH ×2 (05:12→14:05)
[2018-05-08 05:31] LABS: Lymphocytes 9 % (20-55); Platelet Estimate Increased; Polychromasia Few; Segmented Neutrophils 88 % (50-85); Total Cells Counted 100
[2018-05-08 05:41] LABS: Prealbumin 22.4 MG/DL (20-40)
[2018-05-08 05:50] LABS: Alanine Aminotransferase 46 U/L (13-56); Albumin 1.9 G/DL (3.4-5.0); Alkaline Phosphatase 108 U/L (45-117); Aspartate Amino Transferase 29 U/L (0-37); Bilirubin,Total < 0.39 MG/DL (0.2-1.0); Blood Urea Nitrogen 46 MG/DL (7-18); Calcium 8.3 MG/DL (8.5-10.1); Glucose 145 MG/DL (74-106); Osmolality,Calculated 295.3 MOS/KG (273-304); Potassium 3.7 MMOL/L (3.5-5.1); Sodium 141 MMOL/L (136-145); Total Protein 5.8 G/DL (6.4-8.3)
[2018-05-08] MEDS: INSULIN REGULAR 100 UNIT/ML SUBCUT SCH ×3 (05:52→18:14)
[2018-05-08] MEDS: PIPERACILLIN/TAZOBACTAM 3,375 MG in SODIUM CHLORIDE 0.9% 100 ML IV SCH ×2 (06:37→15:35)
[2018-05-08] MEDS: POTASSIUM CHLORIDE RIDER 10 MEQ in PREMIX 1 EACH IV PRN ×2 (06:55→09:19)
[2018-05-08] MEDS: PROPOFOL 1,000 MG/100 ML BOTTLE IV SCH ×2 (07:02→09:16)
[2018-05-08] MEDS ORDERED: FUROSEMIDE 40 MG/4 ML VIAL IV ONE (08:53)
[2018-05-08] MEDS: VANCOMYCIN INJ 750 MG in SODIUM CHLORIDE 0.9% 250 ML IV SCH (09:17)
[2018-05-08] MEDS: PANTOPRAZOLE 40 MG VIAL IV SCH ×2 (09:17→21:45)
[2018-05-08] MEDS: ROSUVASTATIN 20 MG TABLET PO SCH (09:18)
[2018-05-08] MEDS: METOPROLOL TARTRATE 25 MG TABLET PO SCH ×2 (09:18→23:34)
[2018-05-08] MEDS: ASPIRIN CHEW 81 MG TABLET PO SCH (09:18)
[2018-05-09] MEDS: PIPERACILLIN/TAZOBACTAM 3,375 MG in SODIUM CHLORIDE 0.9% 100 ML IV SCH ×2 (00:15→07:15)
[2018-05-09] MEDS: PROPOFOL 1,000 MG/100 ML BOTTLE IV SCH ×2 (00:25→08:50)
[2018-05-09] MEDS: INSULIN REGULAR 100 UNIT/ML SUBCUT SCH ×3 (00:30→12:05)
[2018-05-09] MEDS ORDERED: methylPREDNISolone SOD SUC 40 MG/1 ML VIAL IV SCH (02:00)
[2018-05-09 02:35] LABS: Basophils % 0.1 % (0.0-0.8); Eosinophils % 0.1 % (0.00-10.9); Hematocrit 29.4 VOL% (35.7-47.0); Immature Granulocytes % 1.4 %; Immature Granulocytes Absolute 0.33 #; Lymphocytes # 1.8 10*3/uL (1.4-4.0); Lymphocytes % 7.5 % (21.3-54.2); Mean Corpuscular HGB Conc 30.6 GM/DL (32-36); Mean Corpuscular Hemoglobin 28 PG (27-34); Mean Corpuscular Volume 90.2 FL (87-102); Monocytes # 2.2 10*3/uL (0.11-0.8); Monocytes % 9.6 % (1.7-12.7); NRBC # 0.53 10*3/uL; Neutrophils # 19.1 10*3/uL (1.4-7.4); Neutrophils % 81.3 % (38.7-73.9); Platelet Count 511 T/CUMM (130-400); Red Blood Count 3.26 MC/CUMM (3.8-5.5); Red Cell Distribution Width 15.9 % (9.3-17.3); White Blood Count 23.5 T/CUMM (4-12)
[2018-05-09 02:54] LABS: Calcium 8.2 MG/DL (8.5-10.1)
[2018-05-09 04:06] LABS: ABG Base Excess 0.3 MMOL/L (-2.5-2.5); ABG HCO3 24.5 MMOL/L (20-26); ABG Oxygen Saturation 83.9 % (95-100); ABG PCO2 39.3 MM HG (35-48); ABG PH 7.409 (7.35-7.45); ABG PO2 53.3 MM HG (80-95); ABG TCO2 22.7 MMOL/L (23-27); Allen Test Positive; Pt O2 Delivery Device Ventilator
[2018-05-09] MEDS: ROSUVASTATIN 20 MG TABLET PO SCH (09:05)
[2018-05-09] MEDS: ASPIRIN CHEW 81 MG TABLET PO SCH (09:05)
[2018-05-09] MEDS: METOPROLOL TARTRATE 25 MG TABLET PO SCH (09:05)
[2018-05-09] MEDS: PANTOPRAZOLE 40 MG VIAL IV SCH (09:05)
[2018-05-09 14:25] VITALS: BP 96/57
[2018-05-09] MEDS ORDERED: VANCOMYCIN INJ 750 MG in SODIUM CHLORIDE 0.9% 250 ML IV SCH (21:00)
== END 2018-05-09 13:42 | DRG 377 ==
LOC: EDUNIT# → EDBD → N.ED 05:49 → N.EDINP 07:42 → SUATTDRO 07:42 → N.ICU 11:45
PROVIDERS: ADMIT Internal Medicine; ATTEND Internal Medicine